=== PATIENT | female | born 1990 | race Caucasian/White ===

== ENCOUNTER 2016-10-17 12:05 | Emergency (ER) | payer BC, OTHER ==
[~2016-10-17] VITALS: Ht 154.9 cm; Wt 81.7 kg
[~2016-10-17 12:05] MED LIST: NORCO 5-325 TA1 EACH PO; PRENATAL
[2016-10-17] MEDS ORDERED: NORCO 5-325 TA1 EACH PO (16:08)
[2016-10-17] MEDS ORDERED: ERYTHROMYCIN E3.5 G1 OPHTHALMIC (16:08)
[2016-10-17 16:33] VITALS: BP 121/84
== END 2016-10-17 16:33 | disposition home or self-care (01) ==
LOC: ER 12:05
DX: H57.12 Ocular pain, left eye (principal)